=== PATIENT | female | born 1995 | race Caucasian/White ===

== ENCOUNTER 2016-09-14 20:40 | Emergency (ER) | payer OTHER, SELFPAY ==
[~2016-09-14] VITALS: Ht 160 cm; Wt 98.9 kg
[~2016-09-14 20:40] MED LIST: ACET50TA PO; IBUP60TA PO; VITAPRTA PO
[2016-09-14] MEDS ORDERED: NS 1,000 ML IV ONE (21:30)
[2016-09-14 22:06] LABS: BASO % 0.4 % (0.0-1.0); EOS # 0.2 K/mm3 (0.0-0.50); EOS % 2.5 % (0.0-3.0); LARGE UNSTAINED CELL # 0.2 K/mm3 (0.0-0.4); LARGE UNSTAINED CELL % 1.9 % (0.0-4.0); LYMPH # 3.1 K/mm3 (1.5-6.5); LYMPH % 32.7 % (24.0-44.0); MEAN CORPUSCULAR HEMOGLOBIN 25.8 pg (27.0-33.0); MEAN CORPUSCULAR HGB CONC 31.3 g/dl (32.0-36.5); MEAN CORPUSCULAR VOLUME 82.2 fl (80.0-96.0); MONO # 0.5 K/mm3 (0.0-0.8); MONO % 4.9 % (0.0-5.0); NEUTROPHILS # 5.5 K/mm3 (1.8-7.7); NEUTROPHILS % 57.5 % (36.0-66.0); PLATELET COUNT, AUTOMATED 290 k/mm3 (150-450); RED CELL DISTRIBUTION WIDTH 12.7 % (11.5-14.5); WHITE BLOOD COUNT 9.6 K/mm3 (4.0-10.0)
[2016-09-14 22:20] LABS: CONTROL LINE HCG INT CTR LINE PRESENT
[2016-09-14 22:25] LABS: ANION GAP 7 MEQ/L (8-16); BLOOD UREA NITROGEN 14 MG/DL (7-18); CALCIUM LEVEL 8.4 MG/DL (8.5-10.1); CARBON DIOXIDE LEVEL 29 MEQ/L (21-32); CHLORIDE LEVEL 106 MEQ/L (98-107); CREATININE FOR GFR 0.73 MG/DL (0.55-1.02); GLUCOSE, FASTING 93 MG/DL (70-105); POTASSIUM SERUM 3.7 MEQ/L (3.5-5.1); SODIUM LEVEL 142 MEQ/L (136-145)
--- NOTE | 2016-09-14 23:40 | REPUSA ---
Clinical history: vaginal bleeding, evaluate IUD placement. Findings: Real-time transabdominal and transvaginal ultrasound images of the pelvis were obtained. An anteverted uterus is noted, measuring 9.2 x 4.1 x 5.4 cm. The uterus demonstrates normal echotextur e and echogenicity. The endometrial stripe measures 6 mm and is within normal limits. The IUD is not visualized. The right ovary measure 63.8 x 2.3 x 2.8 cm. The left ovary measures 4.0 x 2.3 x 3.1 cm . Several follicles are seen in the left ovary, the largest measuring 1.7 cm. No adnexal masses are s een. Color Doppler flow is seen within both ovaries. There is a trace amount of free fluid. Impression: 1. The IUD is not visualized. The endometrial canal otherwise appears unremarkable. 2. Small left ovarian follicle. 3.. Small amount of physiologic free fluid in the cul-de-sac.
[2016-09-14 23:54] VITALS: BP 110/53
--- NOTE | 2016-09-16 07:57 | REP ---
Clinical: IUD identification. Technique: Single supine view of the abdomen and pelvis. Findings: Bowel gas pattern is nonspecific. No organomegaly. Skeletal structures are intact and normal. No foreign body and no IUD identified. Impression: Nonspecific bowel gas pattern. No IUD identified. Signed by Hamilton Rendon MD 09/16/2016 07:48 A
== END 2016-09-14 23:57 | disposition home or self-care (01) ==
LOC: M ED 22:17
DX: N93.9 Abnormal uterine and vaginal bleeding, unspecified (principal)

== ENCOUNTER → 2018-06-23 | Outpatient (CLI) | payer OTHER ==
[~2018-06-23] MED LIST changes: -ACET50TA PO; +MAPA500T2 PO
== END ==
LOC: M SMT 13:17
PROVIDERS: ATTEND Obstetrics & Gynecology
DX: N91.4 Secondary oligomenorrhea (principal)

== ENCOUNTER 2019-02-21 14:49 | Emergency (ER) | payer MEDICAID, OTHER ==
[~2019-02-21] VITALS: Ht 160 cm; Wt 95.2 kg
[~2019-02-21 14:49] MED LIST changes: +IBUP600T42 PO; -IBUP60TA PO
[2019-02-21 15:35] LABS: BASO % 0.4 % (0.0-1.0); EOS # 0.4 10^3/uL (0.0-0.5); HEMATOCRIT 35.5 % (36.0-47.0); HEMOGLOBIN 11.2 g/dl (12.0-15.5); LYMPH # 2.8 10^3/uL (1.5-5.0); LYMPH % 27.9 % (24.0-44.0); MEAN CORPUSCULAR HEMOGLOBIN 26.2 pg (27.0-33.0); MEAN CORPUSCULAR HGB CONC 31.5 g/dl (32.0-36.5); MEAN CORPUSCULAR VOLUME 83.1 fl (80.0-96.0); MONO # 0.6 10^3/uL (0.0-0.8); MONO % 5.8 % (0.0-5.0); NEUTROPHILS # 6.2 10^3/uL (1.5-8.5); NEUTROPHILS % 61.7 % (36.0-66.0); PLATELET COUNT, AUTOMATED 321 10^3/uL (150-450); RED BLOOD COUNT 4.27 10^6/uL (4.00-5.40); WHITE BLOOD COUNT 10.1 10^3/uL (4.0-10.0)
[2019-02-21 16:02] LABS: BLOOD UREA NITROGEN 9 MG/DL (7-18); CALCIUM LEVEL 8.7 MG/DL (8.5-10.1); CARBON DIOXIDE LEVEL 27 MEQ/L (21-32); CHLORIDE LEVEL 107 MEQ/L (98-107); GLOMERULAR FILTRATION RATE > 60.0 (>60); GLUCOSE, FASTING 87 MG/DL (70-100); SODIUM LEVEL 143 MEQ/L (136-145)
[2019-02-21] MEDS ORDERED: NS 1,000 ML IV ONE (19:15)
[2019-02-21 19:28] LABS: CK-MB VALUE MASS < 1.0 NG/ML (<3.6); CPK CREATINE PHOSPHOKINASE 60 U/L (26-192); MB/CK RELATIVE INDEX 1.67 (< OR =4); TROPONIN I < 0.02 NG/ML (< 0.10)
[2019-02-21 21:03] LABS: THYROID STIMULATING HORMONE 0.757 uIU/ML (0.358-3.740)
[2019-02-21] MEDS ORDERED: ACETAMINOPHEN 325 MG TAB PO ONE (21:30)
[2019-02-21 21:58] VITALS: BP 111/55
--- NOTE | 2019-02-21 22:01 | ECGEPIP ---
[facility] - ED Test Date: 2019-02-21 Pat Name: JEFFREY CASTILLO Department: Room: - Gender: Female Pile Operator: : [id number] Requested By: Hedy Johnson Order Number: [id number] Reading MD: Venu Doe Measurements Intervals [place] Rate: 85 P: 48 DC: 166 QRS: 77 QRSD: 91 T: 20 QT: 349 QTc: 415 Interpretive Statements SINUS RHYTHM WITH MARKED SINUS ARRHYTHMIA Comparison tracing not on file Baseline artifact Electronically Signed on 02-21-2019 22:00:56 EDT by Venu Doe
== END 2019-02-21 22:15 | disposition home or self-care (01) ==
LOC: M ED 14:49
DX: R42 Dizziness and giddiness (principal); R00.2 Palpitations; R51 Headache

== ENCOUNTER 2019-03-27 19:36 | Emergency (ER) | payer OTHER ==
[~2019-03-27] VITALS: Ht 160 cm; Wt 90.5 kg
[2019-03-27] MEDS ORDERED: IBUPROFEN 600 MG TAB PO ONE (20:15)
[2019-03-27 21:46] VITALS: BP 113/57
--- NOTE | 2019-03-28 07:58 | REP ---
Clinical: Trauma. Technique: AP, lateral, bilateral oblique views of the left knee. Findings: The osseous structures and joint spaces are intact and normal. There is no evidence for acute fracture or dislocation. No joint effusion is appreciated. Surrounding soft tissues are unremarkable. No subcutaneous emphysema or radiodense foreign body. Impression: No acute fracture or dislocation. Electronically Signed by Hamilton Rendon MD 03/28/2019 07:50 A
--- NOTE | 2019-03-28 07:58 | REP ---
Trauma. Fall. Technique: AP and lateral views of the left tibia / fibula. Findings: No acute fracture dislocation. Skeletal structures, joint spaces, and surrounding soft tissues appear normal. Impression: No acute fracture or dislocation. . Electronically Signed by Hamilton Rendon MD 03/28/2019 07:49 A
== END 2019-03-27 21:52 | disposition home or self-care (01) ==
LOC: M ED 19:36
DX: S80.912A Unspecified superficial injury of left knee, initial encounter (principal); W19.XXXA Unspecified fall, initial encounter; Y92.89 Other specified places as the place of occurrence of the external cause; Y93.9 Activity, unspecified; Y99.9 Unspecified external cause status; M25.562 Pain in left knee; M25.462 Effusion, left knee; M79.605 Pain in left leg

== ENCOUNTER → 2019-08-03 | Outpatient (REF) | payer OTHER ==
[2019-08-04 09:53] LABS: INFLUENZA A AMPLIFICATION NEGATIVE (NEGATIVE); INFLUENZA B AMPLIFICATION POSITIVE (NEGATIVE)
== END ==
LOC: M LAB REF 09:11
PROVIDERS: ATTEND Physician Assistant Medical
DX: J11.1 Influenza due to unidentified influenza virus with other respiratory manifestations (principal)

== ENCOUNTER → 2019-11-10 | Outpatient (REF) | payer OTHER | LOC: M LAB 21:18 | PROVIDERS: ATTEND Physician Assistant | DX: J02.9 Acute pharyngitis, unspecified (principal) ==

== ENCOUNTER → 2019-12-30 | Outpatient (CLI) | payer OTHER | LOC: M LABSMTC 11:00 | PROVIDERS: ATTEND Pediatrics | DX: Z02.89 Encounter for other administrative examinations (principal); Z11.59 Encounter for screening for other viral diseases ==

== ENCOUNTER → 2020-01-09 | Outpatient (REF) | payer OTHER | LOC: M WUC 12:31 | PROVIDERS: ATTEND Physician Assistant | DX: N39.0 Urinary tract infection, site not specified (principal) ==

== ENCOUNTER → 2020-10-03 | Outpatient (REF) | payer OTHER | LOC: M PLALAB 10:58 | PROVIDERS: ATTEND Advanced Practice Midwife | DX: O03.9 Complete or unspecified spontaneous abortion without complication (principal) ==

== ENCOUNTER → 2020-10-04 | Outpatient (REF) | payer OTHER ==
[2020-10-04 15:53] LABS: FREE T4 1.04 NG/DL (0.76-1.46); HCG, SERUM QUANTITATIVE < 1.0 MIU/ML; THYROID STIMULATING HORMONE 0.646 uIU/ML (0.358-3.740)
== END ==
LOC: M PLALAB 13:25
PROVIDERS: ATTEND Advanced Practice Midwife
DX: O03.9 Complete or unspecified spontaneous abortion without complication (principal); N96 Recurrent pregnancy loss; Z87.59 Personal history of other complications of pregnancy, childbirth and the puerperium

== ENCOUNTER → 2021-02-09 | Outpatient (REF) | payer OTHER ==
[2021-02-09 20:37] LABS: GC DNA AMPLIFICATION NEGATIVE (NEGATIVE)
== END ==
LOC: M LAB REF 18:34
PROVIDERS: ATTEND Physician Assistant
DX: N39.0 Urinary tract infection, site not specified (principal)

== ENCOUNTER → 2021-09-25 | Outpatient (REF) | payer OTHER ==
[2021-09-25 21:19] LABS: APPEARANCE, URINE MANUAL HAZY (CLEAR); COLOR, URINE MANUAL ORANGE (YELLOW)
[2021-09-25 21:20] LABS: BILIRUBIN, URINE MANUAL OBSCURED (NEGATIVE); BLOOD URINE MANUAL OBSCURED (NEGATIVE); GLUCOSE, URINE (UA) MANUAL OBSCURED mg/dL (NEGATIVE); KETONE, URINE MANUAL OBSCURED mg/dL (NEGATIVE); LEUKOCYTE ESTERASE, URINE MAN OBSCURED (NEGATIVE); NITRITE, URINE MANUAL OBSCURED (NEGATIVE); PROTEIN, URINE MANUAL OBSCURED mg/dL (NEGATIVE); UROBILINOGEN, URINE MANUAL OBSCURED mg/dl (NORMAL)
[2021-09-25 21:30] LABS: AMORPHOUS SEDIMENT, URINE SMALL AMOUNT (NEGATIVE); BACTERIA, URINE SMALL AMOUNT; HYALINE CAST, URINE NONE SEEN /lpf (0-1); SQUAMOUS EPITHELIAL CELL URINE MOD AMOUNT /hpf (SMALL AMT); WBC, URINE 20-30 /hpf (0-3)
== END ==
LOC: M LAB REF 21:06
PROVIDERS: ATTEND Physician Assistant
DX: N39.0 Urinary tract infection, site not specified (principal)

== ENCOUNTER → 2021-09-25 | Outpatient (REF) | payer OTHER | LOC: M WUC 12:57 | PROVIDERS: ATTEND Physician Assistant | DX: J02.9 Acute pharyngitis, unspecified (principal) ==

== ENCOUNTER → 2022-06-18 | Outpatient (REF) | payer OTHER ==
[2022-06-18 17:33] LABS: APPEARANCE, URINE MANUAL CLOUDY (CLEAR); COLOR, URINE MANUAL YELLOW (YELLOW)
[2022-06-18 17:35] LABS: BILIRUBIN, URINE MANUAL NEGATIVE (NEGATIVE); BLOOD URINE MANUAL POSITIVE (NEGATIVE); GLUCOSE, URINE (UA) MANUAL NEGATIVE (NEGATIVE); KETONE, URINE MANUAL 1+ mg/dL (NEGATIVE); LEUKOCYTE ESTERASE, URINE MAN POSITIVE (NEGATIVE); NITRITE, URINE MANUAL NEGATIVE (NEGATIVE); PROTEIN, URINE MANUAL NEGATIVE (NEGATIVE); SPECIFIC GRAVITY,URINE MANUAL 1.025 (1.002-1.035); UROBILINOGEN, URINE MANUAL NORMAL (NORMAL)
[2022-06-18 18:25] LABS: SQUAMOUS EPITHELIAL CELL URINE LARGE AMOUNT /hpf (SMALL AMT); WBC, URINE 40-50 /hpf (0-3)
[2022-06-18 18:26] LABS: BACTERIA, URINE SMALL AMOUNT; HYALINE CAST, URINE NONE SEEN /lpf (0-1)
== END ==
LOC: M LAB REF 16:14
PROVIDERS: ATTEND Physician Assistant Medical
DX: N39.0 Urinary tract infection, site not specified (principal)

== ENCOUNTER → 2022-08-23 | Outpatient (REF) | payer OTHER ==
[2022-08-23 19:22] LABS: BASO # 0.1 10^3/uL (0.0-0.2); BASO % 0.7 % (0.0-1.0); EOS # 0.2 10^3/uL (0.0-0.5); EOS % 3.6 % (0.0-3.0); HEMATOCRIT 37.6 % (36.0-47.0); HEMOGLOBIN 11.4 g/dl (12.0-15.5); LYMPH # 2.3 10^3/uL (1.5-5.0); LYMPH % 34.7 % (24.0-44.0); MEAN CORPUSCULAR HEMOGLOBIN 25.7 pg (27.0-33.0); MEAN CORPUSCULAR HGB CONC 30.3 g/dl (32.0-36.5); MEAN CORPUSCULAR VOLUME 84.9 fl (80.0-96.0); MONO # 0.5 10^3/uL (0.0-0.8); MONO % 7.1 % (2.0-8.0); NEUTROPHILS # 3.6 10^3/uL (1.5-8.5); NEUTROPHILS % 53.6 % (36.0-66.0); PLATELET COUNT, AUTOMATED 333 10^3/uL (150-450); RED BLOOD COUNT 4.43 10^6/uL (4.00-5.40); WHITE BLOOD COUNT 6.7 10^3/uL (4.0-10.0)
[2022-08-23 19:46] LABS: URIC ACID 3.4 MG/DL (3.1-7.8)
[2022-08-23 19:49] LABS: BILIRUBIN,DIRECT < 0.1 MG/DL (<0.4); BILIRUBIN,TOTAL 0.3 MG/DL (0.3-1.2); GLUCOSE,RANDOM 79 MG/DL (LESS THAN 200); HCG, SERUM QUANTITATIVE < 2.6 MIU/ML (<4.2)
[2022-08-23 19:50] LABS: FREE T4 0.98 NG/DL (0.89-1.76)
[2022-08-23 19:51] LABS: THYROID STIMULATING HORMONE 1.024 uIU/ML (0.55-4.78); VITAMIN B12 LEVEL 326 PG/ML (211-911)
[2022-08-23 20:22] LABS: HCG, SERUM QUALITATIVE NEGATIVE (NEGATIVE); MONO SCRN NEGATIVE (NEGATIVE)
== END ==
LOC: M LAB REF 18:38
PROVIDERS: ATTEND Physician Assistant Medical
DX: R50.9 Fever, unspecified (principal)

== ENCOUNTER → 2023-06-30 | Outpatient (REF) | payer OTHER ==
[2023-06-30 13:03] LABS: URINE PREG TEST NEGATIVE (NEGATIVE)
== END ==
LOC: M LAB REF 12:34 → EEVIPCON 12:34
PROVIDERS: ATTEND Physician Assistant Medical
DX: Z32.02 Encounter for pregnancy test, result negative (principal)

== ENCOUNTER → 2023-07-29 | Outpatient (REF) | payer OTHER ==
[2023-07-29 12:53] LABS: URINE PREG TEST NEGATIVE (NEGATIVE)
== END ==
LOC: M LAB REF 12:01
PROVIDERS: ATTEND Physician Assistant Medical
DX: Z32.00 Encounter for pregnancy test, result unknown (principal)

== ENCOUNTER → 2023-08-19 | Outpatient (REF) | payer OTHER ==
[2023-08-19 18:45] LABS: FERRITIN 4.2 NG/ML (7.3-270.7)
[2023-08-19 18:46] LABS: FOLATE 17.4 NG/ML (>5.4)
[2023-08-19 18:53] LABS: PERCENT SATURATION 6.6 % (13.2-45.0)
== END ==
LOC: M LAB REF 16:29
PROVIDERS: ATTEND Nurse Practitioner Adult Health
DX: D64.9 Anemia, unspecified (principal); R53.83 Other fatigue

== ENCOUNTER → 2023-09-23 | Outpatient (CLI) | payer OTHER ==
[~2023-09-23] VITALS: Ht 160 cm; Wt 88.6 kg
[~2023-09-23] MED LIST changes: +ALBUTEROL SULFATE 2.5MG/0.5ML INH NEB SOLN INH PRN; +EPINEPHrine INJ 1 MG/ML 1ML AMP IM PRN; +NS 1,000 ML IV SCH; +diphenhydrAMINE 50MG/ML VIAL IV PRN; +methylPREDNISolone 125MG 2ML VIAL IV PRN
[2023-09-23 15:15] VITALS: BP 137/84; O2SAT 97
[2023-09-23] MEDS: FERRIC CARBOXYMALTOSE INJ 750 MG in NS 250 ML (>50kg) IV ONE (15:20)
[2023-09-23 16:45] VITALS: BP 118/70; O2SAT 98
== END ==
LOC: M INFU 14:59
PROVIDERS: ATTEND Nurse Practitioner Adult Health
DX: D50.9 Iron deficiency anemia, unspecified (principal)
CPT/HCPCS: 96365; J1439

== ENCOUNTER → 2023-10-14 | Outpatient (REF) | payer OTHER ==
[~2023-10-14] MED LIST changes: -ALBUTEROL SULFATE 2.5MG/0.5ML INH NEB SOLN INH PRN; -EPINEPHrine INJ 1 MG/ML 1ML AMP IM PRN; -NS 1,000 ML IV SCH; -diphenhydrAMINE 50MG/ML VIAL IV PRN; -methylPREDNISolone 125MG 2ML VIAL IV PRN
[2023-10-14 13:06] LABS: URINE PREG TEST NEGATIVE (NEGATIVE)
== END ==
LOC: M LAB REF 11:59
PROVIDERS: ATTEND Physician Assistant Medical
DX: Z32.00 Encounter for pregnancy test, result unknown (principal)

== ENCOUNTER → 2024-01-13 | Outpatient (REF) | payer OTHER ==
[2024-01-13 13:15] LABS: BASO # 0.1 10^3/uL (0.0-0.2); BASO % 0.7 % (0.0-1.0); EOS # 0.3 10^3/uL (0.0-0.5); EOS % 3.9 % (0.0-3.0); HEMATOCRIT 41.9 % (36.0-47.0); HEMOGLOBIN 13.7 g/dl (12.0-15.5); LYMPH # 2.3 10^3/uL (1.5-5.0); LYMPH % 30.2 % (24.0-44.0); MEAN CORPUSCULAR HEMOGLOBIN 28.8 pg (27.0-33.0); MEAN CORPUSCULAR HGB CONC 32.7 g/dl (32.0-36.5); MONO # 0.5 10^3/uL (0.0-0.8); MONO % 6.2 % (2.0-8.0); NEUTROPHILS # 4.4 10^3/uL (1.5-8.5); NEUTROPHILS % 58.7 % (36.0-66.0); PLATELET COUNT, AUTOMATED 285 10^3/uL (150-450); RED BLOOD COUNT 4.76 10^6/uL (4.00-5.40); WHITE BLOOD COUNT 7.5 10^3/uL (4.0-10.0)
[2024-01-13 13:37] LABS: ALBUMIN 3.8 G/DL (3.2-5.2); ALKALINE PHOSPHATASE 68 U/L (46-116); ALT/SGPT 20 U/L (7.0-40); AST/SGOT 12 U/L (<34); BILIRUBIN,TOTAL 0.4 MG/DL (0.3-1.2); BLOOD UREA NITROGEN 8 MG/DL (9-23); CALCIUM LEVEL 9.1 MG/DL (8.5-10.1); CARBON DIOXIDE LEVEL 30 MMOL/L (20-31); CHLORIDE LEVEL 107 MMOL/L (98-107); CHOLESTEROL LEVEL 162 MG/DL (<200); CHOLESTEROL RISK RATIO 3.64 (<5); CREATININE FOR GFR 0.67 MG/DL (0.55-1.30); GLOMERULAR FILTRATION RATE > 60.0 (>60); GLUCOSE, FASTING 68 MG/DL (60-100); HDL CHOLESTEROL 44.4 MG/DL (>40); IRON (FE) 94 UG/DL (50-170); LDL CHOLESTEROL 82.8 MG/DL (<100); NON-HDL-C 117.6 MG/DL; PERCENT SATURATION 29.9 % (13.2-45.0); POTASSIUM SERUM 4.3 MMOL/L (3.5-5.1); SODIUM LEVEL 137 MMOL/L (136-145); TOTAL IRON BINDING CAPACITY 314 UG/DL (250-425); TOTAL PROTEIN 6.8 G/DL (5.7-8.2); TRIGLYCERIDES LEVEL 174 MG/DL (<150)
[2024-01-13 13:40] LABS: FERRITIN 21.6 NG/ML (7.3-270.7)
== END ==
LOC: M LAB REF 12:24
PROVIDERS: ATTEND Nurse Practitioner Adult Health
DX: J01.10 Acute frontal sinusitis, unspecified (principal); Z83.3 Family history of diabetes mellitus; Z83.49 Family history of other endocrine, nutritional and metabolic diseases; R53.83 Other fatigue; D50.9 Iron deficiency anemia, unspecified; Z80.8 Family history of malignant neoplasm of other organs or systems

== ENCOUNTER → 2024-02-03 | Outpatient (REF) | payer OTHER ==
[2024-02-03 16:55] LABS: APPEARANCE, URINE CLOUDY (CLEAR); BACTERIA, URINE AUTO 1+ (NEGATIVE); BILIRUBIN, URINE AUTO NEGATIVE (NEGATIVE); BLOOD, URINE BLOOD 3+ (NEGATIVE); COLOR, URINE YELLOW (YELLOW); GLUCOSE, URINE (UA) AUTO NEGATIVE (NEGATIVE); KETONE, URINE AUTO NEGATIVE (NEGATIVE); LEUKOCYTE ESTERASE, URINE AUTO 3+ (NEGATIVE); MUCUS, URINE SMALL (NEGATIVE); NITRITE, URINE AUTO POSITIVE (NEGATIVE); PROTEIN, URINE AUTO NEGATIVE (NEGATIVE); RBC, URINE AUTO 12 /HPF (0-3); SPECIFIC GRAVITY URINE AUTO 1.018 (1.002-1.035); SQUAMOUS EPITHELIAL CELL UR AU 12 /HPF (0-6); UROBILINOGEN, URINE AUTO 0.2 mg/dL (0.0-2.0); WBC, URINE AUTO 168 /HPF (0-3)
== END ==
LOC: M LAB REF 16:23
PROVIDERS: ATTEND Physician Assistant
DX: N39.0 Urinary tract infection, site not specified (principal)

== ENCOUNTER → 2024-04-11 | Outpatient (REF) | payer OTHER | LOC: M LAB REF 12:31 | PROVIDERS: ATTEND Physician Assistant | DX: B34.9 Viral infection, unspecified (principal) ==

== ENCOUNTER → 2024-05-05 | Outpatient (REF) | payer OTHER ==
[2024-05-05 16:43] LABS: BASO % 0.4 % (0.0-1.0); EOS # 0.2 10^3/uL (0.0-0.5); EOS % 2.1 % (0.0-3.0); HEMATOCRIT 41.3 % (36.0-47.0); HEMOGLOBIN 13.4 g/dl (12.0-15.5); LYMPH # 2.4 10^3/uL (1.5-5.0); LYMPH % 25.5 % (24.0-44.0); MEAN CORPUSCULAR HEMOGLOBIN 28.4 pg (27.0-33.0); MEAN CORPUSCULAR HGB CONC 32.4 g/dl (32.0-36.5); MEAN CORPUSCULAR VOLUME 87.5 fl (80.0-96.0); MONO # 0.6 10^3/uL (0.0-0.8); MONO % 6.6 % (2.0-8.0); NEUTROPHILS # 6.2 10^3/uL (1.5-8.5); NEUTROPHILS % 65.2 % (36.0-66.0); PLATELET COUNT, AUTOMATED 333 10^3/uL (150-450); RED BLOOD COUNT 4.72 10^6/uL (4.00-5.40); WHITE BLOOD COUNT 9.5 10^3/uL (4.0-10.0)
[2024-05-05 16:50] LABS: IRON (FE) 68 UG/DL (50-170); PERCENT SATURATION 19.9 % (13.2-45.0); TOTAL IRON BINDING CAPACITY 341 UG/DL (250-425)
[2024-05-05 16:51] LABS: ALBUMIN 3.5 G/DL (3.2-5.2); ALKALINE PHOSPHATASE 69 U/L (35-104); ALT/SGPT 18 U/L (7.0-40); AST/SGOT 11 U/L (<34); BILIRUBIN,TOTAL 0.3 MG/DL (0.3-1.2); BLOOD UREA NITROGEN 10 MG/DL (9-23); CALCIUM LEVEL 9.4 MG/DL (8.5-10.1); CARBON DIOXIDE LEVEL 27 MMOL/L (20-31); CHLORIDE LEVEL 105 MMOL/L (98-107); CHOLESTEROL LEVEL 185 MG/DL (<200); CHOLESTEROL RISK RATIO 4.27 (<5); CREATININE FOR GFR 0.67 MG/DL (0.55-1.30); GLOMERULAR FILTRATION RATE > 60.0 (>60); GLUCOSE, FASTING 86 MG/DL (60-100); HDL CHOLESTEROL 43.3 MG/DL (>40); LDL CHOLESTEROL 113.9 MG/DL (<100); NON-HDL-C 141.7 MG/DL; POTASSIUM SERUM 4.2 MMOL/L (3.5-5.1); SODIUM LEVEL 140 MMOL/L (136-145); TOTAL PROTEIN 6.8 G/DL (5.7-8.2); TRIGLYCERIDES LEVEL 139 MG/DL (<150)
[2024-05-05 16:52] LABS: FERRITIN 10.2 NG/ML (7.3-270.7)
== END ==
LOC: M LAB REF 16:15
PROVIDERS: ATTEND Nurse Practitioner Adult Health
DX: J01.10 Acute frontal sinusitis, unspecified (principal); D50.9 Iron deficiency anemia, unspecified; R53.83 Other fatigue; Z83.3 Family history of diabetes mellitus; Z80.8 Family history of malignant neoplasm of other organs or systems; Z83.49 Family history of other endocrine, nutritional and metabolic diseases

== ENCOUNTER → 2024-05-05 | Outpatient (REF) | payer OTHER | LOC: M LAB REF 16:18 | PROVIDERS: ATTEND Physician Assistant Medical | DX: R53.83 Other fatigue (principal) ==

== ENCOUNTER → 2024-07-08 | Outpatient (REF) | payer OTHER ==
[2024-07-11 11:12] LABS: MUMPS VIRUS IgG ANTIBODY 53.5 AU/mL (>10.99)
== END ==
LOC: M LAB REF 16:07
PROVIDERS: ATTEND Physician Assistant
DX: Z01.84 Encounter for antibody response examination (principal)

== ENCOUNTER → 2024-08-18 | Outpatient (REF) | payer OTHER ==
[2024-08-18 19:01] LABS: HEMOGLOBIN 12.9 g/dl (12.0-15.5); MEAN CORPUSCULAR HGB CONC 32.3 g/dl (32.0-36.5); PLATELET COUNT, AUTOMATED 337 10^3/uL (150-450); WHITE BLOOD COUNT 8.6 10^3/uL (4.0-10.0)
[2024-08-18 19:11] LABS: ALBUMIN 3.7 G/DL (3.2-5.2); ALKALINE PHOSPHATASE 69 U/L (35-104); ALT/SGPT 29 U/L (7.0-40); AST/SGOT 16 U/L (<34); BILIRUBIN,TOTAL 0.3 MG/DL (0.3-1.2); BLOOD UREA NITROGEN 9 MG/DL (9-23); CALCIUM LEVEL 9.2 MG/DL (8.5-10.1); CARBON DIOXIDE LEVEL 30 MMOL/L (20-31); CHLORIDE LEVEL 104 MMOL/L (98-107); CHOLESTEROL LEVEL 164 MG/DL (<200); CHOLESTEROL RISK RATIO 3.38 (<5); FERRITIN 8.3 NG/ML (7.3-270.7); GLOMERULAR FILTRATION RATE > 60.0 (>60); GLUCOSE, FASTING 92 MG/DL (60-100); HDL CHOLESTEROL 48.5 MG/DL (>40); IRON (FE) 55 UG/DL (50-170); LDL CHOLESTEROL 93.7 MG/DL (<100); NON-HDL-C 115.5 MG/DL; PERCENT SATURATION 15.4 % (13.2-45.0); POTASSIUM SERUM 4.1 MMOL/L (3.5-5.1); SODIUM LEVEL 141 MMOL/L (136-145); TOTAL IRON BINDING CAPACITY 356 UG/DL (250-425); TOTAL PROTEIN 6.7 G/DL (5.7-8.2); TRIGLYCERIDES LEVEL 109 MG/DL (<150)
[2024-08-18 19:28] LABS: HEMOGLOBIN A1c 4.5 % (4.0-6.0)
== END ==
LOC: M LAB REF 17:37
DX: E66.9 Obesity, unspecified (principal); R53.83 Other fatigue

== ENCOUNTER → 2024-08-18 | Outpatient (REF) | payer OTHER ==
[2024-08-18 19:03] LABS: HEMOGLOBIN 12.8 g/dl (12.0-15.5); MEAN CORPUSCULAR VOLUME 87.5 fl (80.0-96.0); PLATELET COUNT, AUTOMATED 329 10^3/uL (150-450); RED BLOOD COUNT 4.57 10^6/uL (4.00-5.40); WHITE BLOOD COUNT 8.5 10^3/uL (4.0-10.0)
[2024-08-18 19:11] LABS: FERRITIN 8.2 NG/ML (7.3-270.7)
[2024-08-18 19:12] LABS: PERCENT SATURATION 15.3 % (13.2-45.0)
[2024-08-18 19:24] LABS: HEMOGLOBIN A1c 4.5 % (4.0-6.0)
== END ==
LOC: M LAB REF 17:42
PROVIDERS: ATTEND Physician Assistant
DX: R53.83 Other fatigue (principal)

== ENCOUNTER → 2024-09-16 | Outpatient (CLI) | payer OTHER | LOC: M RAD 11:02 | PROVIDERS: ATTEND Physician Assistant | DX: S89.92XA Unspecified injury of left lower leg, initial encounter (principal); X58.XXXA Exposure to other specified factors, initial encounter; Y92.9 Unspecified place or not applicable; Y93.9 Activity, unspecified; Y99.9 Unspecified external cause status ==

== ENCOUNTER → 2024-09-29 | Outpatient (REF) | payer OTHER ==
[2024-09-29 12:31] LABS: APPEARANCE, URINE HAZY (CLEAR); BACTERIA, URINE AUTO 1+ (NEGATIVE); BILIRUBIN, URINE AUTO NEGATIVE (NEGATIVE); BLOOD, URINE BLOOD NEGATIVE (NEGATIVE); COLOR, URINE YELLOW (YELLOW); GLUCOSE, URINE (UA) AUTO NEGATIVE (NEGATIVE); KETONE, URINE AUTO NEGATIVE (NEGATIVE); LEUKOCYTE ESTERASE, URINE AUTO 3+ (NEGATIVE); NITRITE, URINE AUTO NEGATIVE (NEGATIVE); PROTEIN, URINE AUTO NEGATIVE (NEGATIVE); RBC, URINE AUTO 1 /HPF (0-3); SPECIFIC GRAVITY URINE AUTO 1.012 (1.002-1.035); SQUAMOUS EPITHELIAL CELL UR AU 4 /HPF (0-6); UROBILINOGEN, URINE AUTO 0.2 mg/dL (0.0-2.0); WBC, URINE AUTO 9 /HPF (0-3)
[2024-09-29 13:56] LABS: Trichomonas vaginalis (AMP) NOT DETECTED (NEGATIVE)
[2024-09-29 14:19] LABS: GC DNA AMPLIFICATION NEGATIVE (NEGATIVE)
== END ==
LOC: M LAB REF 12:01
PROVIDERS: ATTEND Physician Assistant
DX: N39.0 Urinary tract infection, site not specified (principal)

== ENCOUNTER → 2025-01-20 | Outpatient (REF) | payer OTHER ==
[2025-01-20 18:10] LABS: PLATELET COUNT, AUTOMATED 311 10^3/uL (150-450)
[2025-01-20 18:36] LABS: IRON (FE) 95 UG/DL (50-170); PERCENT SATURATION 27.5 % (13.2-45.0)
[2025-01-20 18:37] LABS: ALT/SGPT 21 U/L (7.0-40); AST/SGOT 19 U/L (<34); CALCIUM LEVEL 9.1 MG/DL (8.5-10.1); CARBON DIOXIDE LEVEL 25 MMOL/L (20-31); CHLORIDE LEVEL 106 MMOL/L (98-107); CHOLESTEROL LEVEL 162 MG/DL (<200); CHOLESTEROL RISK RATIO 3.95 (<5); CREATININE FOR GFR 0.69 MG/DL (0.55-1.30); GLOMERULAR FILTRATION RATE > 90.0 (>60); LDL CHOLESTEROL 94.2 MG/DL (<100); NON-HDL-C 121.0 MG/DL; POTASSIUM SERUM 5.8 MMOL/L (3.5-5.1); SODIUM LEVEL 140 MMOL/L (136-145); TRIGLYCERIDES LEVEL 134 MG/DL (<150)
== END ==
LOC: M LAB REF 16:47
DX: E66.9 Obesity, unspecified (principal)

== ENCOUNTER → 2025-02-06 | Outpatient (REF) | payer OTHER ==
[2025-02-06 18:53] LABS: APPEARANCE, URINE CLEAR (CLEAR); BACTERIA, URINE AUTO 1+ (NEGATIVE); BILIRUBIN, URINE AUTO NEGATIVE (NEGATIVE); BLOOD, URINE BLOOD NEGATIVE (NEGATIVE); GLUCOSE, URINE (UA) AUTO NEGATIVE (NEGATIVE); KETONE, URINE AUTO NEGATIVE (NEGATIVE); LEUKOCYTE ESTERASE, URINE AUTO 3+ (NEGATIVE); NITRITE, URINE AUTO NEGATIVE (NEGATIVE); PROTEIN, URINE AUTO NEGATIVE (NEGATIVE); RBC, URINE AUTO 1 /HPF (0-3); SPECIFIC GRAVITY URINE AUTO 1.006 (1.002-1.035); SQUAMOUS EPITHELIAL CELL UR AU 2 /HPF (0-6); UROBILINOGEN, URINE AUTO 0.2 mg/dL (0.0-2.0); WBC, URINE AUTO 5 /HPF (0-3)
== END ==
LOC: M LAB REF 17:38
PROVIDERS: ATTEND Physician Assistant
DX: N39.0 Urinary tract infection, site not specified (principal)